=== PATIENT | female | born 1970 | race Caucasian/White ===

== ENCOUNTER → 2021-01-29 | Outpatient (CLI) | payer OTHER | LOC: RAD 15:45 | PROVIDERS: ATTEND Family Medicine | DX: M54.5 Low back pain (principal) | CPT/HCPCS: 72110 ==

== ENCOUNTER → 2024-05-06 | Day surgery (SDC) | payer OTHER ==
[~2024-05-06] MED LIST: ARAVA20 MG PO; CIMZIA400 MG IM; EPINEPHRINE HCL 1:1000 1ML 1 MG/ML AMP ONE; FLUOXETINE HCL10 MG PO; KETAMINE 50MG/5ML SYR ONE; LACTATED RINGER'S 1,000 ML ONE; MELOXICAM7.5 MG PO; MONTELUKAST SOD10 MG PO; MOUNJARO5 MG/0.5 M SC; OTEZLA30 MG PO; PROPOFOL IV EMULSION 10 MG/ML 20 ML VIAL ONE; SULFASALAZINE500 MG PO; TRAZODONE HCL50 MG PO
[2024-05-06 16:00] VITALS: BP 131/82; PULSE 77; RESP 17; TEMP 97.8; O2SAT 96
== END | disposition home or self-care (01) ==
LOC: OR 12:57
PROVIDERS: ATTEND Internal Medicine Gastroenterology
DX: Z12.11 Encounter for screening for malignant neoplasm of colon (principal); D12.3 Benign neoplasm of transverse colon; D12.4 Benign neoplasm of descending colon; K57.30 Diverticulosis of large intestine without perforation or abscess without bleeding; K64.8 Other hemorrhoids; D64.9 Anemia, unspecified; Z01.810 Encounter for preprocedural cardiovascular examination
CPT/HCPCS: 45381; 45385; 93005; J0171; J2704; J7121